=== PATIENT | female | born 1945 | race Caucasian/White ===

== ENCOUNTER 2021-09-01 10:22 | Inpatient (IN) ==
[2021-09-01 11:44] LABS: ABS Eosinophils 0.4 10^3/ul (0-0.6); ABS Lymphocytes 0.6 10^3/ul (1.0-4.8); ABS Monocytes 0.7 10^3/ul (0-0.8); ABS Neutrophils 6.1 10^3/ul (1.5-7.7); Eosinophil % 5.5 %; Hematocrit 41 % (35-47); Hemoglobin 14.2 g/dL (12.0-16.0); Lymphocyte % 7.7 %; Mean Corpuscular HGB Conc 35 g/dL (31-36); Mean Corpuscular Hemoglobin 31 pg (27-31); Mean Corpuscular Volume 89 fL (80-97); Mean Platelet Volume 8.2 fL (7.4-10.4); Platelet Count 160 10^3/uL (150-450); Red Blood Count 4.58 10^6 /uL (3.70-4.87); Red Cell Distribution Width 14 % (10-15); White Blood Count 7.9 10^3/uL (3.5-10.8)
[2021-09-01 12:02] LABS: Albumin 4.1 g/dL (3.2-5.2); Albumin/Globulin Ratio 1.4 (1-3); C Reactive Protein 70.04 mg/L (<8.01); Calcium 9.9 mg/dL (8.6-10.3); Potassium 3.2 mmol/L (3.5-5.0); Total Protein 7.1 g/dL (6.4-8.9)
[2021-09-01 12:05] LABS: Troponin I 0.01 ng/mL (<0.03)
[2021-09-01] MEDS ORDERED: Potassium Chlor 20 meq TAB.ER PO ONE (12:07)
[2021-09-01] MEDS ORDERED: Cefepime 1 GM in Dextrose 1 GM/50 ML BAG IV ONE (12:07)
[2021-09-01 12:09] LABS: Activated Partial Thrombo Time 34.2 seconds (26.0-38.0); INR 1.16 (0.86-1.15)
[2021-09-01 13:32] LABS: Rapid COVID-19 Molecular Undetected (Undetected)
[2021-09-01] MEDS: Heparin 5000 UNITS/ML 1 mL VIAL SUBCUT SCH (22:28)
[2021-09-02] MEDS: Heparin 5000 UNITS/ML 1 mL VIAL SUBCUT SCH ×3 (06:17→22:28)
[2021-09-02] MEDS: Mometasone/Formoter 200/5 MDI INH SCH ×2 (07:34→20:35)
[2021-09-02 08:55] LABS: ABS Eosinophils 0.5 10^3/ul (0-0.6); ABS Lymphocytes 0.8 10^3/ul (1.0-4.8); ABS Monocytes 0.6 10^3/ul (0-0.8); ABS Neutrophils 4.6 10^3/ul (1.5-7.7); Eosinophil % 7.3 %; Hematocrit 41 % (35-47); Hemoglobin 14.5 g/dL (12.0-16.0); Lymphocyte % 12.3 %; Mean Corpuscular HGB Conc 35 g/dL (31-36); Mean Corpuscular Hemoglobin 32 pg (27-31); Mean Corpuscular Volume 90 fL (80-97); Mean Platelet Volume 8.1 fL (7.4-10.4); Nucleated Red Blood Cells % 0.1; Platelet Count 176 10^3/uL (150-450); Red Blood Count 4.57 10^6 /uL (3.70-4.87); Red Cell Distribution Width 14 % (10-15); White Blood Count 6.5 10^3/uL (3.5-10.8)
[2021-09-02] MEDS ORDERED: Cholecalciferol (VIT D3) 1,000 unit TAB PO SCH (09:00)
[2021-09-02] MEDS ORDERED: Fluticasone/Vilanterol MDI(NF) 200/25 MDI INH SCH (09:00)
[2021-09-02] MEDS: Cefepime 1 GM in Dextrose 1 GM/50 ML BAG IV SCH ×2 (09:02→22:28)
[2021-09-02] MEDS: Cholecalciferol (VIT D3) 1,000 unit TAB PO SCH (09:03)
[2021-09-02] MEDS: Aspirin EC 81 mg TAB.EC (enteric coated) PO SCH (09:03)
[2021-09-02] MEDS: Potassium Chlor 20 meq TAB.ER PO SCH (09:03)
[2021-09-02] MEDS: Latanoprost 0.005% 2.5 ml BTL BOTH EYES SCH (09:04)
[2021-09-02 09:12] LABS: C Reactive Protein 59.74 mg/L (<8.01); Calcium 9.9 mg/dL (8.6-10.3); Potassium 3.5 mmol/L (3.5-5.0)
[2021-09-02] MEDS ORDERED: Ondansetron 4 mg VIAL 2 MG/ML 2 ml VIAL IV PRN (11:11)
[2021-09-02 20:19] LABS: TSH Ultra Thyroid Stim Horm 2.34 mcIU/mL (0.34-5.60)
[2021-09-03] MEDS: Heparin 5000 UNITS/ML 1 mL VIAL SUBCUT SCH ×3 (05:49→22:41)
[2021-09-03] MEDS: guaiFENesin DM SUGAR FREE 100 MG/10 MG 5 ML UDC PO PRN ×2 (05:51→11:17)
[2021-09-03] MEDS: Mometasone/Formoter 200/5 MDI INH SCH ×2 (07:33→20:16)
[2021-09-03] MEDS: Potassium Chlor 20 meq TAB.ER PO SCH (08:39)
[2021-09-03] MEDS: Cholecalciferol (VIT D3) 1,000 unit TAB PO SCH (08:40)
[2021-09-03] MEDS: Aspirin EC 81 mg TAB.EC (enteric coated) PO SCH (08:40)
[2021-09-03] MEDS: Cefepime 1 GM in Dextrose 1 GM/50 ML BAG IV SCH ×2 (08:44→22:24)
[2021-09-03] MEDS: Albuterol HFA INHALER 8 gm MDI INH PRN ×3 (10:23→17:19)
[2021-09-03] MEDS: Latanoprost 0.005% 2.5 ml BTL BOTH EYES SCH (11:17)
[2021-09-03 11:40] LABS: Urine Appearance Cloudy; Urine Bilirubin Negative (Negative); Urine Blood 2+ (Negative); Urine Color Yellow; Urine Glucose 2+(150 mg/dL) (Negative); Urine Ketones Negative (Negative); Urine Nitrite Negative (Negative); Urine Protein 1+(30 mg/dL) (Negative); Urine Specific Gravity 1.012 (1.002-1.030); Urine Urobilinogen Negative (Negative)
[2021-09-03 11:57] LABS: Urine Bacteria Absent (Absent); Urine Red Blood Cell Trace(0-2/hpf) (Absent); Urine Squamous Epithelial Cell Present (Absent); Urine White Blood Cell Absent (Absent)
[2021-09-03 12:07] LABS: ABS Eosinophils 0.3 10^3/ul (0-0.6); ABS Lymphocytes 0.7 10^3/ul (1.0-4.8); ABS Monocytes 0.5 10^3/ul (0-0.8); ABS Neutrophils 4.5 10^3/ul (1.5-7.7); Eosinophil % 5.5 %; Hematocrit 40 % (35-47); Hemoglobin 13.9 g/dL (12.0-16.0); Lymphocyte % 11.4 %; Mean Corpuscular HGB Conc 34 g/dL (31-36); Mean Corpuscular Hemoglobin 31 pg (27-31); Mean Corpuscular Volume 89 fL (80-97); Platelet Count 172 10^3/uL (150-450); Red Blood Count 4.53 10^6 /uL (3.70-4.87); Red Cell Distribution Width 14 % (10-15); White Blood Count 6.1 10^3/uL (3.5-10.8)
[2021-09-03 12:24] LABS: Magnesium 1.9 mg/dL (1.9-2.7); Potassium 3.8 mmol/L (3.5-5.0)
[2021-09-03] MEDS: SPIRIVA Respimat (tiotropium) 2.5 mcg/inh Inhaler INH SCH (15:00)
[2021-09-03] MEDS: guaiFENesin/CODIENE 100mg/10mg 5 ML UDC PO PRN ×2 (15:44→22:37)
[2021-09-03] MEDS: Benzocaine/Menthol LOZ MT PRN ×2 (15:44→22:50)
[2021-09-03 17:55] LABS: C Reactive Protein 27.54 mg/L (<8.01)
[2021-09-03] MEDS: Levalbuterol 0.63MG/3ML NEB UNIT OF USE INH SCH (20:15)
[2021-09-04] MEDS: Levalbuterol 0.63MG/3ML NEB UNIT OF USE INH SCH ×4 (01:28→19:31)
[2021-09-04] MEDS: Heparin 5000 UNITS/ML 1 mL VIAL SUBCUT SCH ×3 (06:04→21:16)
[2021-09-04] MEDS: SPIRIVA Respimat (tiotropium) 2.5 mcg/inh Inhaler INH SCH (07:56)
[2021-09-04] MEDS: Mometasone/Formoter 200/5 MDI INH SCH ×2 (07:56→20:24)
[2021-09-04] MEDS: Potassium Chlor 20 meq TAB.ER PO SCH (11:04)
[2021-09-04] MEDS: guaiFENesin/CODIENE 100mg/10mg 5 ML UDC PO PRN ×3 (11:04→22:41)
[2021-09-04] MEDS: Latanoprost 0.005% 2.5 ml BTL BOTH EYES SCH (11:05)
[2021-09-04] MEDS: Cholecalciferol (VIT D3) 1,000 unit TAB PO SCH (11:05)
[2021-09-04] MEDS: Cefepime 1 GM in Dextrose 1 GM/50 ML BAG IV SCH ×2 (11:05→21:28)
[2021-09-04] MEDS: Aspirin EC 81 mg TAB.EC (enteric coated) PO SCH (11:05)
[2021-09-04] MEDS: PTO:Azelastine 0.15% NASAL(NF) 30 ML BTL BOTH NARES SCH (13:06)
[2021-09-04] MEDS ORDERED: NS 0.9% 500 ml BAG 500 ML IV ONE (15:47)
[2021-09-04] MEDS: Benzocaine/Menthol LOZ MT PRN (22:39)
[2021-09-05] MEDS: Levalbuterol 0.63MG/3ML NEB UNIT OF USE INH SCH ×4 (00:07→19:30)
[2021-09-05] MEDS: Albuterol HFA INHALER 8 gm MDI INH PRN (01:55)
[2021-09-05] MEDS: Benzocaine/Menthol LOZ MT PRN ×2 (05:06→21:46)
[2021-09-05] MEDS: Heparin 5000 UNITS/ML 1 mL VIAL SUBCUT SCH ×3 (06:10→21:13)
[2021-09-05] MEDS: Mometasone/Formoter 200/5 MDI INH SCH ×2 (08:13→19:30)
[2021-09-05] MEDS: SPIRIVA Respimat (tiotropium) 2.5 mcg/inh Inhaler INH SCH (08:13)
[2021-09-05] MEDS: PTO:Azelastine 0.15% NASAL(NF) 30 ML BTL BOTH NARES SCH (08:59)
[2021-09-05] MEDS: Aspirin EC 81 mg TAB.EC (enteric coated) PO SCH (09:00)
[2021-09-05] MEDS: Cholecalciferol (VIT D3) 1,000 unit TAB PO SCH (09:00)
[2021-09-05] MEDS: Cefepime 1 GM in Dextrose 1 GM/50 ML BAG IV SCH ×2 (09:01→21:06)
[2021-09-05] MEDS: Potassium Chlor 20 meq TAB.ER PO SCH (09:01)
[2021-09-05] MEDS: Latanoprost 0.005% 2.5 ml BTL BOTH EYES SCH (09:02)
[2021-09-06] MEDS: Levalbuterol 0.63MG/3ML NEB UNIT OF USE INH SCH ×2 (00:53→08:52)
[2021-09-06] MEDS: guaiFENesin/CODIENE 100mg/10mg 5 ML UDC PO PRN ×2 (02:03→14:41)
[2021-09-06] MEDS: Heparin 5000 UNITS/ML 1 mL VIAL SUBCUT SCH ×3 (06:10→21:13)
[2021-09-06] MEDS: Cefepime 1 GM in Dextrose 1 GM/50 ML BAG IV SCH ×2 (08:06→21:08)
[2021-09-06] MEDS: Potassium Chlor 20 meq TAB.ER PO SCH (08:06)
[2021-09-06] MEDS: Aspirin EC 81 mg TAB.EC (enteric coated) PO SCH (08:07)
[2021-09-06] MEDS: Cholecalciferol (VIT D3) 1,000 unit TAB PO SCH (08:07)
[2021-09-06] MEDS: PTO:Azelastine 0.15% NASAL(NF) 30 ML BTL BOTH NARES SCH (08:07)
[2021-09-06] MEDS: Latanoprost 0.005% 2.5 ml BTL BOTH EYES SCH (08:08)
[2021-09-06] MEDS: SPIRIVA Respimat (tiotropium) 2.5 mcg/inh Inhaler INH SCH (08:52)
[2021-09-06] MEDS: Mometasone/Formoter 200/5 MDI INH SCH ×3 (08:53→21:11)
[2021-09-06] MEDS ORDERED: Levalbuterol 0.63MG/3ML NEB UNIT OF USE INH PRN (09:01)
[2021-09-06] MEDS: Levalbuterol HFA INHALER MDI INH SCH ×2 (13:16→21:12)
[2021-09-06] MEDS: Benzocaine/Menthol LOZ MT PRN (14:41)
[2021-09-06] MEDS ORDERED: Furosemide 40 mg/4 ml IV VIAL IV ONE (15:45)
[2021-09-07] MEDS: Levalbuterol HFA INHALER MDI INH SCH ×4 (01:40→20:39)
[2021-09-07] MEDS: Mometasone/Formoter 200/5 MDI INH SCH ×2 (02:00→20:41)
[2021-09-07] MEDS: guaiFENesin/CODIENE 100mg/10mg 5 ML UDC PO PRN (03:15)
[2021-09-07] MEDS: Heparin 5000 UNITS/ML 1 mL VIAL SUBCUT SCH ×3 (06:10→23:17)
[2021-09-07 07:18] LABS: Calcium 10.5 mg/dL (8.6-10.3); eGFR CKD-EPI 64.1 (>60)
[2021-09-07] MEDS: Cholecalciferol (VIT D3) 1,000 unit TAB PO SCH (10:18)
[2021-09-07] MEDS: Aspirin EC 81 mg TAB.EC (enteric coated) PO SCH (10:19)
[2021-09-07] MEDS: Potassium Chlor 20 meq TAB.ER PO SCH (10:19)
[2021-09-07] MEDS: Cefepime 1 GM in Dextrose 1 GM/50 ML BAG IV SCH ×2 (10:20→22:37)
[2021-09-07] MEDS: Latanoprost 0.005% 2.5 ml BTL BOTH EYES SCH ×2 (10:20→23:23)
[2021-09-07] MEDS: PTO:Azelastine 0.15% NASAL(NF) 30 ML BTL BOTH NARES SCH (10:21)
[2021-09-08] MEDS: Benzocaine/Menthol LOZ MT PRN ×2 (00:10→23:19)
[2021-09-08] MEDS: guaiFENesin/CODIENE 100mg/10mg 5 ML UDC PO PRN ×2 (00:10→23:19)
[2021-09-08] MEDS: Levalbuterol HFA INHALER MDI INH SCH ×4 (01:44→19:28)
[2021-09-08] MEDS: Heparin 5000 UNITS/ML 1 mL VIAL SUBCUT SCH ×3 (06:03→21:32)
[2021-09-08] MEDS: Potassium Chlor 20 meq TAB.ER PO SCH (08:04)
[2021-09-08] MEDS: Cholecalciferol (VIT D3) 1,000 unit TAB PO SCH (08:04)
[2021-09-08] MEDS: Aspirin EC 81 mg TAB.EC (enteric coated) PO SCH (08:04)
[2021-09-08] MEDS: Cefepime 1 GM in Dextrose 1 GM/50 ML BAG IV SCH ×2 (08:05→22:19)
[2021-09-08] MEDS: PTO:Azelastine 0.15% NASAL(NF) 30 ML BTL BOTH NARES SCH (08:05)
[2021-09-08] MEDS: Mometasone/Formoter 200/5 MDI INH SCH ×2 (08:33→19:28)
[2021-09-08] MEDS: Latanoprost 0.005% 2.5 ml BTL BOTH EYES SCH (21:34)
[2021-09-09] MEDS: Levalbuterol HFA INHALER MDI INH SCH ×3 (00:57→13:43)
[2021-09-09] MEDS: Heparin 5000 UNITS/ML 1 mL VIAL SUBCUT SCH (05:20)
[2021-09-09] MEDS ORDERED: Enoxaparin 40 MG/0.4 ML SYR SUBCUT SCH (08:00)
[2021-09-09] MEDS: Cholecalciferol (VIT D3) 1,000 unit TAB PO SCH (08:29)
[2021-09-09] MEDS: Potassium Chlor 20 meq TAB.ER PO SCH (08:29)
[2021-09-09] MEDS: Aspirin EC 81 mg TAB.EC (enteric coated) PO SCH (08:29)
[2021-09-09] MEDS: PTO:Azelastine 0.15% NASAL(NF) 30 ML BTL BOTH NARES SCH (08:34)
[2021-09-09] MEDS: Mometasone/Formoter 200/5 MDI INH SCH (09:21)
[2021-09-09 10:06] LABS: Calcium (PTH Intact) 10.4 mg/dL (8.6-10.3)
[2021-09-09 12:26] VITALS: BP 111/56
== END 2021-09-09 13:30 | disposition home or self-care (01) | DRG 193 ==
LOC: ED 10:22 → EDHOLD 10:22 → SUATTDRO 14:31 → MED 21:12 → SUATTDRO 09-02 19:00
PROVIDERS: ADMIT Hospitalist; ATTEND Hospitalist